=== PATIENT | female | born 1990 | race Caucasian/White ===

== ENCOUNTER 2017-07-26 22:35 | Observation (INO) | payer OTHER ==
--- NOTE | 2017-07-26 23:16 | PCM.LDHP ---
L&D History of Present Illness - General Date of Service: 07/26/17 Admit Problem/Dx: Admission Diagnosis/Problem Admission Diagnosis/Problem 07/26/17 23:12 Contractions Source of Information: Patient History Limitations: Reports: No Limitations - History of Present Illness Introduction:: Patient is a at 39w6d here for contractions. Sophie every 2-5 minutes but they are not intense. They have been occurring since last night. She has been able to eat and walk without difficulty. She is a little nauseous now. Baby is moving well, no vaginal bleeding or loss of fluids. No headaches , vision change, leg swelling, RUQ pain. - Related Data Allergies/Adverse Reactions: Allergies Allergy/AdvReac Type Severity Reaction Status Date / Time No Known Allergies Allergy Verified 07/26/17 22:58 Home Medications: Home Meds Vit No.130/Iron/FA [ Tablet] 1 each PO DAILY 04/20/15 [History] Ferrous Sulfate 325 mg PO DAILY 07/26/17 [History] Past Medical History [employer]EL[employer] History: Reports: : 2 Para: 1 Other OB/BYN History: external version in first . Now 39w6d - Infectious Disease History Infectious Disease History: Reports: Chicken Pox - Past Surgical History HEENT Surgical History: Reports: Oral Surgery, Other (See Below) Other HEENT Surgeries/Procedures: nose job Social & Family History - Family History Family Medical History: Noncontributory - Tobacco Use Smoking Status *Q: Never Smoker Second Hand Smoke Exposure: No - Caffeine Use Caffeine Use: Reports: None - Recreational Drug Use Recreational Drug Use: No H&P Review of Systems - Review of Systems: Review Of Systems: See Below General: Reports: No Symptoms HEENT: Reports: No Symptoms Pulmonary: Reports: No Symptoms Cardiovascular: Reports: No Symptoms Gastrointestinal: Reports: Nausea Genitourinary: Reports: No Symptoms Musculoskeletal: Reports: No Symptoms Skin: Reports: No Symptoms Psychiatric: Reports: No Symptoms Neurological: Reports: No Symptoms Hematologic/Lymphatic: Reports: No Symptoms Immunologic: Reports: No Symptoms L&D Exam - Exam Exam: See Below - OB Specific Contraction Frequency (min): Every 2-4 minutes Contraction Intensity: Mild Movement: Active Heart Tones: Present Heart Tones per Min: 150 (Reactive strip) Heart Rate (FHR) Variability: Moderate (6-25 bmp) Presentation: Vertex - Roman Score Roman Score Effacement: 51-70% Roman Score Dilation: 1-2 cm - Exam General: Alert, Oriented, Cooperative HEENT: Conjunctiva Clear, EOMI, Hearing Intact, Mucosa Moist & [place], Nares Patent, Normal Nasal Septum Neck: Supple, Trachea Midline Lungs: Clear to Auscultation, Normal Respiratory Effort Cardiovascular: Regular Rate, Regular Rhythm GI/Abdominal Exam: Normal Bowel Sounds, Soft, Non-Tender, No Organomegaly, No Distention, No Abnormal Bruit, No Mass Genitourinary: Cervical dilitation (/-2) Extremities: Normal Inspection, Normal Range of Motion, Non-Tender, No Pedal Edema, Normal Capillary Refill Skin: Warm, Dry, Intact Psychiatric: Alert, Normal Affect, Normal Mood - Problem List (1) Normal labor SNOMED Code(s): 50436465 ICD Code: O80 - ENCOUNTER FOR FULL-TERM UNCOMPLICATED DELIVERY; Z37.9 - OUTCOME OF DELIVERY, UNSPECIFIED Status: Acute Current Visit: Yes Problem List Initiated/Reviewed/Updated: Yes Orders Last 24hrs: Active Orders 24 hr Category Date Time Status OB Check [OM.PC] Click To Edit Care 07/26/17 23:00 Ordered Patient admitted with frequent contractions at 40 weeks. Admit to OB, intermittent TOCO and EFM. If not making adequate cervical change, will start pitocin for augmentation. GBS positive, start Pen G. Patient would like intrathecal when the time comes for pain control. Discussed with Dr. Lucia. Leticia Jauregui MD PGYIII
[2017-07-27] MEDS ORDERED: Tranexamic Acid 1,000 MG in Sodium Chloride 0.9% 100 ML IV PRN (00:08)
[2017-07-27] MEDS ORDERED: Misoprostol 400 MCG (4 X 100 MCG TAB) RECTAL PRN (00:08)
[2017-07-27] MEDS ORDERED: Ondansetron 4 MG/2 ML SDV IV PRN (00:08)
[2017-07-27] MEDS ORDERED: Acetaminophen 325 MG Tab PO PRN (00:08)
[2017-07-27] MEDS ORDERED: Sodium Chloride 0.9% 10 ML Syringe FLUSH PRN (00:08)
[2017-07-27] MEDS ORDERED: Carboprost Tromethamine 250 MCG/1 ML Amp IM PRN (00:08)
[2017-07-27] MEDS ORDERED: Methylergonovine 0.2 MG/1 ML Amp IM PRN (00:08)
[2017-07-27] MEDS ORDERED: Lactated Ringers 500 ML IV ONE (00:08)
[2017-07-27] MEDS ORDERED: Lidocaine 1% 30 ML SDV INJECT PRN (00:08)
[2017-07-27] MEDS ORDERED: Penicillin G Potassium 5 MILLUNITS in Sodium Chloride 0.9% 100 ML IV ONE (00:08)
[2017-07-27] MEDS ORDERED: Nalbuphine 10 MG/1 ML Vial IM ONE (00:12)
[2017-07-27] MEDS ORDERED: Oxytocin/Normal Saline 30 UNIT/500 ML BAG IV SCH (00:15)
[2017-07-27] MEDS ORDERED: Calcium Carbonate 500 MG Tab.Chew PO PRN (00:30)
[2017-07-27] MEDS: Lactated Ringers 1,000 ML IV SCH ×3 (00:41→12:05)
[2017-07-27] MEDS ORDERED: Penicillin G Potassium 3 MILLUNITS in Sodium Chloride 0.9% 100 ML IV SCH (02:00)
[2017-07-27] MEDS: Penicillin G Potassium 3 MILLUNITS in Sodium Chloride 0.9% 100 ML IV SCH ×2 (04:39→09:09)
--- NOTE | 2017-07-27 07:45 | PCM.PN ---
- General Info Date of Service: 07/27/17 Admission Dx/Problem (Free Text): Admission Diagnosis/Problem Admission Diagnosis/Problem 07/26/17 23:12 Contractions Subjective Update: Patient relatively comfortable with contractions - Patient Data Vitals - Most Recent: Last Vital Signs Temp 36.8 C 07/27/17 05:45 Pulse 75 07/27/17 05:45 Resp 16 07/27/17 03:45 BP 119/71 07/27/17 05:45 Pulse Ox 100 07/26/17 22:47 Weight - Most Recent: 101.605 kg Lab Results Last 24 Hours: Laboratory Results - last 24 hr 07/27/17 Range/Units 00:24 WBC 9.9 (5.0-10.0) 10^3/uL RBC 4.01 L (4.2-5.4) 10^6/uL Hgb 12.1 (12.0-16.0) g/dL Hct 36.0 L (37.0-47.0) % MCV 89.8 D (80-100) fL MCH 30.2 (27.0-34.0) pg MCHC 33.6 (33.0-35.0) g/dL Plt Count 257 (150-450) 10^3/uL Med Orders - Current: Current Medications Acetaminophen (Tylenol) 650 mg PO Q4H PRN PRN Reason: Pain (Mild 1-3) and fever Calcium Carbonate/Glycine (Tums) 500 mg PO Q2H PRN PRN Reason: Heartburn Last Admin: 07/27/17 00:47 Dose: 500 mg Carboprost Tromethamine (Hemabate Ds) 250 mcg IM ASDIRECTED PRN PRN Reason: HEMORRHAGE Lactated Ringer's (Ringers, Lactated) 1,000 mls @ 125 mls/hr IV ASDIRECTED RAUL Last Admin: 07/27/17 05:44 Dose: 125 mls/hr Oxytocin/Sodium Chloride (Pitocin In Ns 30 Unit/500 Ml) 30 unit in 500 mls @ 2 mls/hr IV TITRATE RAUL; Protocol Last Titration: 07/27/17 02:30 Dose: 6 munits/min, 6 mls/hr Tranexamic Acid 1,000 mg/ (Sodium Chloride) 110 mls @ 660 mls/hr IV ONETIME PRN PRN Reason: Bleeding Penicillin G Potassium 3 (millunits/ Sodium Chloride) 100 mls @ 200 mls/hr IV Q4H RAUL Last Admin: 07/27/17 04:39 Dose: 200 mls/hr Lidocaine HCl (Xylocaine-Mpf 1%) 10 ml INJECT ASDIRECTED PRN PRN Reason: Perineal Repair Methylergonovine Maleate (Methergine) 0.2 mg IM ASDIRECTED PRN PRN Reason: Hemorrhage Misoprostol (Cytotec) 800 mcg RECTAL ASDIRECTED PRN PRN Reason: Hemorrhage Ondansetron HCl (Zofran) 4 mg IV Q4H PRN PRN Reason: Nausea/Vomiting Sodium Chloride (Saline Flush) 10 ml FLUSH ASDIRECTED PRN PRN Reason: Keep Vein Open Discontinued Medications Lactated Ringer's (Ringers, Lactated) 500 mls @ 125 mls/hr IV .BOLUS ONE Stop: 07/27/17 04:07 Penicillin G Potassium 5 (millunits/ Sodium Chloride) 100 mls @ 200 mls/hr IV ONETIME ONE Stop: 07/27/17 00:37 Last Admin: 07/27/17 00:41 Dose: 200 mls/hr Penicillin G Potassium 3 (millunits/ Sodium Chloride) 100 mls @ 200 mls/hr IV Q4HR RAUL Nalbuphine HCl (Nubain) 20 mg IM ONETIME ONE Stop: 07/27/17 00:13 - Exam (Female) Exam: Cervical Dilatation (2.5/70/-2), Heart Tones (140, moderate variability, accelerations present, no decels) Physical Findings Comments:: TOCO: Sophie every 2-3 minutes - Problem List & Annotations (1) Normal labor SNOMED Code(s): 71875805 Code(s): O80 - ENCOUNTER FOR FULL-TERM UNCOMPLICATED DELIVERY; Z37.9 - OUTCOME OF DELIVERY, UNSPECIFIED Status: Acute Current Visit: Yes - Problem List Review Problem List Initiated/Reviewed/Updated: Yes - My Orders Last 24 Hours: My Active Orders 07/26/17 23:00 OB Check [OM.PC] Click To Edit 07/27/17 00:08 Patient Status [ADT] Routine Communication Order [RC] ASDIRECTED Heart Tones [RC] PER UNIT ROUTINE Notify Provider Vital Signs OB [RC] ASDIRECTED Notify Provider [RC] PRN Pump Management, Intrathecal [RC] ASDIRECTED Up ad Alannah [RC] ASDIRECTED Vital Signs [RC] PER UNIT ROUTINE Acetaminophen [Tylenol] 650 mg PO Q4H PRN Carboprost Tromethamine [Hemabate DS] 250 mcg IM ASDIRECTED PRN Lidocaine 1% [Xylocaine-MPF 1%] 10 ml INJECT ASDIRECTED PRN Methylergonovine [Methergine] 0.2 mg IM ASDIRECTED PRN Misoprostol [Cytotec] 800 mcg RECTAL ASDIRECTED PRN Ondansetron [Zofran] 4 mg IV Q4H PRN Sodium Chloride 0.9% [Saline Flush] 10 ml FLUSH ASDIRECTED PRN Tranexamic Acid [Cyklokapron] 1,000 mg Sodium Chloride 0.9% [Normal Saline] 100 ml IV ONETIME Saline Lock Insert [OM.PC] Routine Resuscitation Status Routine 07/27/17 00:15 Lactated Ringers [Ringers, Lactated] 1,000 ml IV ASDIRECTED Oxytocin/Normal Saline [Pitocin in NS 30 UNIT/500 ML] 30 unit in 500 ml IV TITRATE 07/27/17 00:30 Calcium Carbonate [Tums] 500 mg PO Q2H PRN 07/27/17 04:30 Penicillin G Potassium [Pfizerpen] 3 millunits Sodium Chloride 0.9% [Normal Saline] 100 ml IV Q4H 07/27/17 Breakfast Nothing Per Oral Diet [DIET] - Assessment Assessment:: Labor; little progress - Plan Plan:: Patient is on 6 of pitocin and has been for 5 hours. Will give her one more hour of low dose pit and decide on weather to proceed with increasing pitocin or try cytotec. Expectant management for Leticia Jauregui MD PGYIII
--- NOTE | 2017-07-27 13:57 | PCM.DCSUM1 ---
Discharge Summary - Discharge Data Discharge Disposition: Home, Self-Care 01 Condition: Good - Discharge Diagnosis/Problem(s) (1) False labor SNOMED Code(s): 136548423 ICD Code: O47.9 - FALSE LABOR, UNSPECIFIED Status: Acute Current Visit: Yes - Patient Instructions Diet: Regular Diet as Tolerated, Drink 8-10+ Glasses/Day Activity: No Lifting Over 20 Pounds Driving: May Drive Today Showering/Bathing: May Shower - Discharge Plan Home Medications: Home Meds Vit No.130/Iron/FA [ Tablet] 1 each PO DAILY 04/20/15 [History] Ferrous Sulfate 325 mg PO DAILY 07/26/17 [History] - Patient Data Vitals - Most Recent: Last Vital Signs Temp 98.2 F 07/27/17 05:45 Pulse 75 07/27/17 05:45 Resp 16 07/27/17 03:45 BP 119/71 07/27/17 05:45 Pulse Ox 100 07/26/17 22:47 Weight - Most Recent: 224 lb I&O - Last 24 hours: Intake & Output 07/26/17 07/27/17 07/27/17 22:59 06:59 14:59 Intake Total 1381 Balance 1381 Lab Results - Last 24 hrs: Laboratory Results - last 24 hr 07/27/17 Range/Units 00:24 WBC 9.9 (5.0-10.0) 10^3/uL RBC 4.01 L (4.2-5.4) 10^6/uL Hgb 12.1 (12.0-16.0) g/dL Hct 36.0 L (37.0-47.0) % MCV 89.8 D (80-100) fL MCH 30.2 (27.0-34.0) pg MCHC 33.6 (33.0-35.0) g/dL Plt Count 257 (150-450) 10^3/uL Med Orders - Current: Current Medications Acetaminophen (Tylenol) 650 mg PO Q4H PRN PRN Reason: Pain (Mild 1-3) and fever Calcium Carbonate/Glycine (Tums) 500 mg PO Q2H PRN PRN Reason: Heartburn Last Admin: 07/27/17 00:47 Dose: 500 mg Carboprost Tromethamine (Hemabate Ds) 250 mcg IM ASDIRECTED PRN PRN Reason: HEMORRHAGE Lactated Ringer's (Ringers, Lactated) 1,000 mls @ 125 mls/hr IV ASDIRECTED RAUL Last Admin: 07/27/17 12:05 Dose: 125 mls/hr Oxytocin/Sodium Chloride (Pitocin In Ns 30 Unit/500 Ml) 30 unit in 500 mls @ 2 mls/hr IV TITRATE RAUL; Protocol Last Titration: 07/27/17 10:58 Dose: 14 mls/hr Tranexamic Acid 1,000 mg/ (Sodium Chloride) 110 mls @ 660 mls/hr IV ONETIME PRN PRN Reason: Bleeding Penicillin G Potassium 3 (millunits/ Sodium Chloride) 100 mls @ 200 mls/hr IV Q4H RAUL Last Admin: 07/27/17 09:09 Dose: 200 mls/hr Lidocaine HCl (Xylocaine-Mpf 1%) 10 ml INJECT ASDIRECTED PRN PRN Reason: Perineal Repair Methylergonovine Maleate (Methergine) 0.2 mg IM ASDIRECTED PRN PRN Reason: Hemorrhage Misoprostol (Cytotec) 800 mcg RECTAL ASDIRECTED PRN PRN Reason: Hemorrhage Ondansetron HCl (Zofran) 4 mg IV Q4H PRN PRN Reason: Nausea/Vomiting Sodium Chloride (Saline Flush) 10 ml FLUSH ASDIRECTED PRN PRN Reason: Keep Vein Open Discontinued Medications Lactated Ringer's (Ringers, Lactated) 500 mls @ 125 mls/hr IV .BOLUS ONE Stop: 07/27/17 04:07 Penicillin G Potassium 5 (millunits/ Sodium Chloride) 100 mls @ 200 mls/hr IV ONETIME ONE Stop: 07/27/17 00:37 Last Admin: 07/27/17 00:41 Dose: 200 mls/hr Penicillin G Potassium 3 (millunits/ Sodium Chloride) 100 mls @ 200 mls/hr IV Q4HR [facility] Nalbuphine HCl (Nubain) 20 mg IM ONETIME ONE Stop: 07/27/17 00:13
--- NOTE | 2017-07-27 21:54 | DISCH ---
ADMISSION DIAGNOSES: 1. A 39 and 6/7 weeks' gestation by last menstrual period and 20-week ultrasound. 2. 2, para 1. 3. Blood type O positive, rubella immune, and group B streptococcus positive. 4. History of post-dates delivery. DISCHARGE DIAGNOSES: 1. A 39 and 6/7 weeks' gestation by last menstrual period and 20-week ultrasound. 2. 2, para 1. 3. Blood type O positive, rubella immune, and group B streptococcus positive. 4. History of post-dates delivery. 5. False labor. BRIEF HISTORY: A 27-year-old female presented to the hospital with complaints of increasing pelvic pressure and possible contractions. See admission H and P for further details. HOSPITAL COURSE: The patient's labor was augmented with Pitocin at 6 units for 6 hours. Upon cervical exam check after those 6 hours, her cervix was not found to have dilated beyond 2 cm. The patient was 2 cm dilated in clinic visit. The patient's Pitocin was increased over time to a maximum of 14 mL/minute. Cervical exam at noon today found the cervix to be 2.5 cm dilated. Bag of water is intact. Mother has received 4 courses of penicillin for her GBS positive status. Discussed with mother that her time here has helped ripen her cervix for delivery. Discussed the risks and benefits of induction of labor via Pitocin and Cytotec. Mother in agreement with physician that further attempts at induction of labor today would increase risks of shoulder dystocia, distress, and primary section. Mother is in agreement with plan to be discharged home today to expect spontaneous induction of labor. DISCHARGE CONDITION: Good. PHYSICAL EXAMINATION: Vital Signs: Temperature 98.2 Fahrenheit, pulse is 75, blood pressure 119/71, respirations of 16 on room air. Heart: Regular without murmur. Lungs: Clear to auscultation bilaterally. Abdomen: Gravid. Fundus is firm. Extremities: No edema, erythema, or tenderness. Cervix: Cervical exam 2.5 cm dilated with softened cervix. Tocometer strips is reassuring, category 1 tracing. LABORATORY DATA: Hemoglobin of 12.1, platelets 257. DISPOSITION: Home with family. MEDICATIONS: Continue home medications she was taking throughout prior to this admission. DISCHARGE INSTRUCTIONS: She is discharged home. She is to continue her activities as she was prior to her admission. Discussed induction of labor in 5 -[address] Lucia. Patient's and her 's questions were answered. [facility] /[id number] MTDD
[2017-07-28 18:11] VITALS: BP 91/49
== END 2017-07-27 13:15 | disposition home or self-care (01) ==
LOC: DL.OBCHECK 22:35 → DL.OB 07-27 00:03
PROVIDERS: ADMIT Family Medicine; ATTEND Family Medicine
DX: O60.03 Preterm labor without delivery, third trimester (principal); O98.813 Other maternal infectious and parasitic diseases complicating pregnancy, third trimester; B95.1 Streptococcus, group B, as the cause of diseases classified elsewhere; Z3A.39 39 weeks gestation of pregnancy
CPT/HCPCS: 36415; 85027; A9270; J2540; J2590; J7050; J7120

== ENCOUNTER 2017-08-01 00:03 | Inpatient (IN) | payer OTHER ==
[2017-08-01] MEDS ORDERED: Misoprostol 25 MCG (1/4 of 100 MCG) Tab ONE ×2 (05:28→09:24)
--- NOTE | 2017-08-01 07:46 | HP ---
REASON FOR ADMISSION: Induction of labor for current postdates gestation and history of post-dates gestation. HISTORY OF PRESENT ILLNESS: A 27-year-old, 2, para 1-0-0-1, who presented to Labor and Delivery at 40 weeks 5 days gestation for induction of labor due to her history of postdates delivery. The patient was seen earlier in Labor and Delivery on the night of July 26, 2017, was 2 cm dilated, admitted for induction and augmentation of labor with Pitocin and received 12 hours of Pitocin augmentation and was discharged July 27, 2017 at 2 cm dilated. Please see notes from those dates for further details. Patient started her care at 13 weeks gestation and has been very compliant with her visits with Dr. Catrina Augustine. Dating is based on definite last menstrual period, which is consistent with a 21-week ultrasound. Blood type O positive. Antibody screen negative. Hemoglobin 13.4. Rubella immune. RPR nonreactive. Hepatitis B surface antigen nonreactive. Hepatitis C nonreactive. HIV negative. TSH in normal limits. Group B strep positive. Bacterial vaginosis at 31 weeks, treated with metronidazole. OBSTETRICAL HISTORY: One prior vaginal delivery at 40 weeks 5 days. Vacuum assisted vaginal delivery of a 3895 g, male infant. This had a successful external version prior to delivery. MEDICAL HISTORY: None with exception of prior SURGICAL HISTORY: Rhinoplasty and wisdom teeth extraction under general anesthesia. MEDICATIONS: vitamins with iron and Tums for heartburn. ALLERGIES: No known allergies. FAMILY HISTORY: Mother with melanoma, and father with type 2 diabetes mellitus, multiple sclerosis and seizures, undetermined if related to multiple sclerosis. Paternal grandfather with coronary artery disease. Maternal uncles, twins. Paternal uncle with esophageal cancer. Family history is negative for defects, anesthesia problems, bleeding disorders, clotting disorder, and cystic fibrosis. SOCIAL HISTORY: The patient is to , Jesse. They live in [place], [place]. 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 This is their second child together. REVIEW OF SYSTEMS: Up to date for immunizations including flu shot and Tdap during this . The patient plans on breast feeding. The patient has a personal history of chickenpox. System review is unremarkable. No visual changes. No headaches, nausea, vomiting. No significant edema. No spotting or bleeding. No right upper quadrant pain. No fluid discharge or rupture of membranes. Irregular contractions described as slightly worse than the menstrual cramp. PHYSICAL EXAMINATION: Vital Signs: Blood pressure 117/82, pulse of 76, temperature of 97.6, respirations 16 on room air. General: The patient is well and is no acute distress. Height stated 5 feet 5 inches, weight 224 pounds. HEENT: Normocephalic and atraumatic. Mucosal membranes are moist. Lungs: Clear to auscultation bilaterally. Heart: S1 and S2. Regular rate and rhythm. No murmur. Abdomen: Gravid. Cervix is 2 cm dilated, 50% effaced. Bag of water intact. No vaginal fluid, leakage, or bleeding noted after cervical exam. LABORATORY DATA: White cell count of 10.4, hemoglobin of 12.3, and platelets 254. Nonstress test on arrival shows baseline of 140. Good variability noted. Accelerations are noted. Strip is reactive. Intermittent contractions from 3 to 5 minutes apart. IMPRESSION: 1. A 27-year-old, 2, para 1-0-0-1 at 40 weeks 5 days gestation, candidate for induction due to history of postdates gestation requiring induction of labor. 2. Blood type is O positive. Rubella immune. group B streptococcus positive. 3. Anemia of . 4. Nonstress test, reactive. Plan: The patient will be admitted with routine induction orders. Cytotec will be placed 25 mcg per vagina as per induction orders. We will continue to observe closely and will consider to repeat Cytotec at approximately 4:45 a.m., 4 hours post placement for Cytotec. Artificial rupture of membranes or Pitocin infusion, we will use for augmentation as pending her clinical course in labor. The patient is planning on intrathecal for pain management, anticipating likely vaginal delivery for her. The patient and are aware that a course of labor may change to involve intervention such as a vacuum-assisted delivery and possibly section for delivery. All questions answered. Further management pending her course of labor. [facility] /[id number] Patient seen and examined. Agree with note as scribed my behalf by Milana Matos MS3. -[facility] 08/09/17 2227. MTDD
[2017-08-01] MEDS ORDERED: Misoprostol 25 MCG (1/4 of 100 MCG) Tab VAG PRN (11:03)
[2017-08-01] MEDS ORDERED: Methylergonovine 0.2 MG/1 ML Amp IM PRN (11:10)
[2017-08-01] MEDS ORDERED: Lidocaine 1% 30 ML SDV INJECT PRN (11:10)
[2017-08-01] MEDS ORDERED: Carboprost Tromethamine 250 MCG/1 ML Amp IM PRN ×2 (11:11→22:52)
[2017-08-01] MEDS ORDERED: Misoprostol 400 MCG (4 X 100 MCG TAB) RECTAL PRN ×2 (11:11→22:52)
[2017-08-01] MEDS ORDERED: Nalbuphine 10 MG/1 ML Vial IM PRN (11:12)
[2017-08-01] MEDS ORDERED: Penicillin G Potassium 5 MILLUNITS in Sodium Chloride 0.9% 100 ML IV ONE (13:08)
--- NOTE | 2017-08-01 13:31 | PCM.PNLD ---
<Milana Matos - Last Filed: 08/01/17 13:25> Labor Progress Note - VS & Meds Vital Signs: Last Vital Signs Temp 97.7 F 08/01/17 11:44 Pulse 78 08/01/17 11:44 Resp 16 08/01/17 11:44 BP 110/56 L 08/01/17 11:44 Pulse Ox Active Medications: Current Medications Carboprost Tromethamine (Hemabate Ds) 250 mcg IM ASDIRECTED PRN PRN Reason: Bleeding Lactated Ringer's (Ringers, Lactated) 1,000 mls @ 20 mls/hr IV .Q24H RAUL Penicillin G Potassium 2.5 (millunits/ Sodium Chloride) 100 mls @ 200 mls/hr IV Q4H RAUL Penicillin G Potassium 5 (millunits/ Sodium Chloride) 100 mls @ 200 mls/hr IV ONETIME ONE Stop: 08/01/17 13:37 Lidocaine HCl (Xylocaine-Mpf 1%) 0 ml INJECT ASDIRECTED PRN PRN Reason: LOCAL ANESTHESIA Methylergonovine Maleate (Methergine) 0.2 mg IM ASDIRECTED PRN PRN Reason: Bleeding Misoprostol (Cytotec) 25 mcg VAG Q4H PRN PRN Reason: DIRECTED BY PHYSICIAN Last Admin: 08/01/17 13:21 Dose: 25 mcg Misoprostol (Cytotec) 800 mcg RECTAL ASDIRECTED PRN PRN Reason: Bleeding Nalbuphine HCl (Nubain) 20 mg IM ONETIME PRN PRN Reason: PAIN Discontinued Medications Misoprostol (Cytotec) Confirm Administered Dose 25 mcg .ROUTE .STK-MED ONE Stop: 08/01/17 05:29 Last Admin: 08/01/17 06:22 Dose: Not Given Misoprostol (Cytotec) Confirm Administered Dose 25 mcg .ROUTE .STK-MED ONE Stop: 08/01/17 09:25 Last Admin: 08/01/17 09:28 Dose: 25 mcg - Uterine Contractions Uterine Monitoring Mode: External [place] Contraction Frequency (min): 1.5-5.5 Contraction Duration (sec): 60-90 Contraction Intensity: Mild to Moderate Uterine Resting Tone: Soft - Vaginal Exam Dilation (cm): 3.5 Effacement (Percent): 50 Cervical Position: Posterior Sterile Vaginal Exam Performed By: Milana Matos - Labor Progress (Free Text) Labor Progress: Cytotec Induction - 25 mcg every 4 hours placed vaginally 00:45 2 cm dilated, 50% effaced 05:00 2 cm dilated, 50% effaced 09:30 3 cm dilated, 50% effaced, contractions stronger 13:20 3.5 - 4 cm dilated, 50% effaced GRADER OPERATOR MS3 <Khari AugustineCatrina Feliz - Last Filed: 08/09/17 22:27> Labor Progress Note - VS & Meds Vital Signs: Last Vital Signs Temp 96.9 F 08/03/17 07:09 Pulse 73 08/03/17 07:09 Resp 16 08/03/17 07:09 BP 117/74 08/03/17 07:09 Pulse Ox 97 08/03/17 07:09 Active Medications: Current Medications Discontinued Medications Acetaminophen (Tylenol) 650 mg PO Q6H PRN PRN Reason: mild pain or fever Last Admin: 08/02/17 09:16 Dose: 650 mg Acetaminophen (Tylenol) 650 mg PO Q4H PRN PRN Reason: Cramping Last Admin: 08/02/17 14:29 Dose: 650 mg Benzocaine/Menthol (Dermoplast Pain Relief Girard) 0 gm TOP Q4H PRN PRN Reason: Perineal comfort measures Last Admin: 08/01/17 23:16 Dose: 1 spray Bupivacaine HCl/Dextrose (Marcaine 0.75% Spinal) Confirm Administered Dose 2 ml .ROUTE .STK-MED ONE Stop: 08/01/17 19:14 Last Admin: 08/01/17 20:31 Dose: Not Given Bupivacaine HCl/Dextrose (Marcaine 0.75% Spinal) 0.8 ml .XX .STK-MED ONE Stop: 08/02/17 14:48 Carboprost Tromethamine (Hemabate Ds) 250 mcg IM ASDIRECTED PRN PRN Reason: Bleeding Carboprost Tromethamine (Hemabate Ds) 250 mcg IM ASDIRECTED PRN PRN Reason: Excessive vaginal bleeding Docusate Sodium (Colace) 100 mg PO BID PRN PRN Reason: Constipation Last Admin: 08/03/17 08:42 Dose: 100 mg Epinephrine HCl (Adrenalin) Confirm Administered Dose 1 mg .ROUTE .STK-MED ONE Stop: 08/01/17 19:14 Last Admin: 08/01/17 20:31 Dose: Not Given Epinephrine HCl (Adrenalin) 0.1 mg .XX .STK-MED ONE Stop: 08/02/17 14:48 Fentanyl (Sublimaze) Confirm Administered Dose 100 mcg .ROUTE .STK-MED ONE Stop: 08/01/17 19:14 Last Admin: 08/01/17 20:31 Dose: Not Given Fentanyl (Sublimaze) 30 mcg ITHECAL .STK-MED ONE Stop: 08/02/17 14:48 Lactated Ringer's (Ringers, Lactated) 1,000 mls @ 20 mls/hr IV .Q24H RAUL Last Admin: 08/02/17 13:09 Dose: Not Given Penicillin G Potassium 2.5 (millunits/ Sodium Chloride) 100 mls @ 200 mls/hr IV Q4H RAUL Last Admin: 08/02/17 15:06 Dose: Not Given Penicillin G Potassium 5 (millunits/ Sodium Chloride) 100 mls @ 200 mls/hr IV ONETIME ONE Stop: 08/01/17 13:37 Last Admin: 08/01/17 14:22 Dose: 200 mls/hr Lactated Ringer's (Ringers, Lactated) 1,000 mls @ 125 mls/hr IV ASDIRECTED RAUL Last Admin: 08/01/17 19:29 Dose: 125 mls/hr Oxytocin/Sodium Chloride (Pitocin In Ns 30 Unit/500 Ml) 30 unit in 500 mls @ 2 mls/hr IV TITRATE RAUL; Protocol Last Titration: 08/02/17 01:20 Dose: Infused Tranexamic Acid 1,000 mg/ (Sodium Chloride) 110 mls @ 660 mls/hr IV ONETIME PRN PRN Reason: Bleeding Ibuprofen (Motrin) 800 mg PO Q8H PRN PRN Reason: Mild Pain or Fever Last Admin: 08/03/17 08:42 Dose: 800 mg Lidocaine HCl (Xylocaine-Mpf 1%) 0 ml INJECT ASDIRECTED PRN PRN Reason: LOCAL ANESTHESIA Lidocaine HCl (Xylocaine-Mpf 1%) 3 ml .XX .STK-MED ONE Stop: 08/02/17 14:48 Methylergonovine Maleate (Methergine) 0.2 mg IM ASDIRECTED PRN PRN Reason: Bleeding Misoprostol (Cytotec) Confirm Administered Dose 25 mcg .ROUTE .STK-MED ONE Stop: 08/01/17 05:29 Last Admin: 08/01/17 06:22 Dose: Not Given Misoprostol (Cytotec) Confirm Administered Dose 25 mcg .ROUTE .STK-MED ONE Stop: 08/01/17 09:25 Last Admin: 08/01/17 09:28 Dose: 25 mcg Misoprostol (Cytotec) 25 mcg VAG Q4H PRN PRN Reason: DIRECTED BY PHYSICIAN Last Admin: 08/01/17 13:21 Dose: 25 mcg Misoprostol (Cytotec) 800 mcg RECTAL ASDIRECTED PRN PRN Reason: Bleeding Misoprostol (Cytotec) 800 mcg RECTAL ONETIME PRN PRN Reason: Hemorrhage Misoprostol (Cytotec) 25 mcg VAG .STK-MED ONE Stop: 08/03/17 11:20 Nalbuphine HCl (Nubain) 20 mg IM ONETIME PRN PRN Reason: PAIN Last Admin: 08/01/17 17:19 Dose: 20 mg Ondansetron HCl (Zofran) 4 mg IV Q6HR [facility] Last Admin: 08/01/17 20:32 Dose: Not Given Ondansetron HCl (Zofran) 4 mg IV Q4H PRN PRN Reason: Nausea/Vomiting Last Admin: 08/01/17 19:13 Dose: 4 mg Oxytocin (Pitocin) 10 unit IM ONETIME PRN PRN Reason: Bleeding Prenat Multivit/Carbon/Iron/Folic Ac ( Plus Iron) 1 each PO DAILY [facility] Last Admin: 08/03/17 08:42 Dose: 1 each Simethicone (Simethicone) 80 mg PO Q4H PRN PRN Reason: Gas Sodium Bicarbonate (Sodium Bicarbonate 4.2%) Confirm Administered Dose 5 meq .ROUTE .STK-MED ONE Stop: 08/01/17 19:15 Last Admin: 08/01/17 20:31 Dose: Not Given Sodium Bicarbonate (Sodium Bicarbonate 4.2%) 0.5 meq .XX .STK-MED ONE Stop: 08/02/17 14:48 Sodium Chloride (Saline Flush) 10 ml FLUSH ASDIRECTED PRN PRN Reason: Keep Vein Open Sodium Chloride (Normal Saline) 0.4 ml .XX .STK-MED ONE Stop: 08/02/17 14:48 Sufentanil Citrate (Sufenta) Confirm Administered Dose 50 mcg .ROUTE .STK-MED ONE Stop: 08/01/17 19:15 Last Admin: 08/01/17 20:31 Dose: Not Given Sufentanil Citrate (Sufenta) 20 mcg ITHECAL .STK-MED ONE Stop: 08/02/17 14:48 Zolpidem Tartrate (Ambien) 5 mg PO BEDTIME PRN PRN Reason: Insomnia - Labor Progress (Free Text) Labor Progress: Patient seen and examined. Agree with note as scribed my behalf by Milana Matos, MS3. -[facility] 08/09/17 [id number].
[2017-08-01] MEDS: Penicillin G Potassium 2.5 MILLUNITS in Sodium Chloride 0.9% 100 ML IV SCH (18:15)
[2017-08-01] MEDS: Lactated Ringers 1,000 ML IV SCH (18:18)
[2017-08-01] MEDS ORDERED: Ondansetron 4 MG/2 ML SDV IV SCH (19:06)
[2017-08-01] MEDS ORDERED: fentaNYL 100 MCG/2 ML SDV ONE (19:13)
[2017-08-01] MEDS ORDERED: EPINEPHrine 1 MG/ML SDV ONE (19:13)
[2017-08-01] MEDS ORDERED: Bupivacaine 0.75%/D5W 2 ML Amp ONE (19:13)
[2017-08-01] MEDS ORDERED: Ondansetron 4 MG/2 ML SDV IV PRN (19:30)
[2017-08-01] MEDS ORDERED: Lactated Ringers 1,000 ML IV SCH (19:45)
--- NOTE | 2017-08-01 19:46 | PCM.SN ---
- Free Text/Narrative Note: Intrathecal. Sitting position, sterile prep and drape. 1% lidocaine w bicarb for skinwheal to L2 L3 interspace. Introducer, 24 ga pencan x 1. Pos CSF, neg heme, neg parasthesia. 20 mcg PF sufenta, 30 mcg pf fentanyl, 0.1 ml pf 1:1000 epi, 0.4 ml pf NS and 6 mg of 0.75% pf bupivacaine injected after CSF aspiration. Pt to L lateral position. Procedure time 1919 to 1949
[2017-08-01] MEDS ORDERED: Oxytocin/Normal Saline 30 UNIT/500 ML BAG IV SCH (21:15)
[2017-08-01] MEDS ORDERED: Oxytocin 10 Units/1 ML SDV IM PRN (22:52)
[2017-08-01] MEDS ORDERED: Sodium Chloride 0.9% 10 ML Syringe FLUSH PRN (22:52)
[2017-08-01] MEDS ORDERED: Simethicone 80 MG Tab.Chew PO PRN (22:52)
[2017-08-01] MEDS ORDERED: Zolpidem 5 MG Tab PO PRN (22:52)
[2017-08-01] MEDS ORDERED: Benzocaine/Menthol 20%-0.5% Spray 56 GM Canister TOP PRN (22:52)
[2017-08-01] MEDS ORDERED: Acetaminophen 325 MG Tab PO PRN (22:52)
[2017-08-01] MEDS ORDERED: Tranexamic Acid 1,000 MG in Sodium Chloride 0.9% 100 ML IV PRN (22:52)
[2017-08-01] MEDS: Docusate Sodium 100 MG Cap PO PRN (23:15)
[2017-08-01] MEDS: Ibuprofen 800 MG Tab PO PRN (23:16)
--- NOTE | 2017-08-02 00:05 | DEL ---
DATE: 08/01/2017 PREOPERATIVE DIAGNOSES: 1. Intrauterine at 40 and 5/7 weeks' gestation. 2. Induction of labor due to history of postdates gestation requiring induction of labor. 3. 2, para 1-0-0-1. 4. Blood type O positive, rubella immune, group B Streptococcus positive with penicillin prophylaxis given. 5. Anemia of . 6. Third trimester bacterial vaginosis. 7. Heartburn. 8. Nasal congestion. 9. Spontaneous rupture of membranes with meconium-stained fluid. POSTOPERATIVE DIAGNOSES: 1. Intrauterine at 40 and 5/7 weeks' gestation, delivered via normal spontaneous vaginal delivery. 2. Induction of labor due to history of postdates gestation requiring induction of labor. 3. 2, para 2-0-0-2. 4. Blood type O positive, rubella immune, group B Streptococcus positive with penicillin prophylaxis given. 5. Anemia of . 6. Third trimester bacterial vaginosis. 7. Heartburn. 8. Nasal congestion. 9. Spontaneous rupture of membranes with meconium-stained fluid. 10.Nuchal and body umbilical cord entanglement x2, reduced bluntly at delivery. 11.Second-degree perineal laceration, repaired. PROCEDURE PERFORMED: NST, Cytotec induction, scalp electrode placement, Pitocin augmentation, and then subsequent spontaneous vaginal delivery on 08/01/2017. UMBRELLA FRAME MAKER: ROSITA MuñozIII. ANESTHESIA/ANALGESIA: The patient did receive an intrathecal in the first stage of labor. ESTIMATED BLOOD LOSS: 350 mL. FINDINGS: Male, scores of 8 and 9, weighing 9 pounds 4 ounces (4200 g). SUMMARY OF THE EVENTS: The patient is a 27-year-old G2, P1-0-0-1, intrauterine at 40 and 5/7 weeks' gestation, admitted for induction of labor due to history of postdates gestation requiring induction of labor. She underwent multiple Cytotec placements per protocol and was serially re- evaluated. Spontaneous rupture of membranes occurred yielding meconium-stained fluid, and she was noted to have cervical change. She was followed thereafter and a deceleration on the heart tones was traced. At that time, a scalp electrode was placed and Pitocin was started. Subsequently, she was found to be complete. Dr. Lucia and I both donned sterile gown and gloves, and the patient started pushing with contractions, as she was in the second stage of labor. The vertex was then delivered in a AVELINO presentation, followed by the anterior and posterior shoulder, then followed by the rest of the without difficulty. There was nuchal and body umbilical cord entanglement x2 that was reduced bluntly at delivery. Mouth and nares were suctioned. Cord was doubly clamped and cut. The infant was then resuscitated on the mother's abdomen and was subsequently taken over to the warmer. Approximately 10 mL of cord blood was obtained for labs. The placenta was then delivered with gentle cord traction and fundal massage within 15 minutes. The placenta was found to be intact and there was a three-vessel cord. Calcifications were noted on the placenta. Perineum, vaginal, and perirectal areas were examined and noted to have a second-degree perineal laceration that was repaired. The mother and are currently stable at the time of dictation. The history, physical, assessment and plan are per Dr. Lucia. This note is being scribed for Dr. Lucia. [facility] /[id number] Patient seen and examined. Procedure performed under my direct supervision and with my assistance. Agree with note as scribed my behalf by DANIELLA Muñoz. -data officer 08/09/17 JOSE
[2017-08-02] MEDS: Penicillin G Potassium 2.5 MILLUNITS in Sodium Chloride 0.9% 100 ML IV SCH ×5 (01:55→15:06)
[2017-08-02] MEDS: Ibuprofen 800 MG Tab PO PRN ×3 (07:04→22:37)
[2017-08-02] MEDS: Prenatal Multivitamin with Calcium/Folic Acid/Iron Tab PO SCH (08:41)
[2017-08-02] MEDS: Docusate Sodium 100 MG Cap PO PRN ×2 (08:41→22:37)
--- NOTE | 2017-08-02 08:58 | PN ---
DATE: 08/02/2017 SUBJECTIVE: No concerns per nursing staff, and no major concerns per patient. The patient notes that she feels tender and sore, but the pain medications are helping with that. She denies fevers or chills, headaches or blurry vision, lightheadedness or dizziness, shortness of breath or chest pain, nausea or vomiting, sharp abdominal pains, or erythema or tenderness in any extremity. She is tolerating a general diet and is ambulating without difficulty. She has not passed gas and has not had a bowel movement. She does note lochia that is mild in amount. She denies any difficulty with urination. OBJECTIVE: Vital Signs: Temperature 96.0 F, heart rate 70, blood pressure 121/ 76, respiratory rate 20, oxygen saturation 96% on room air. General: Pleasant, alert, and in no acute distress. Heart: Regular rate and rhythm. S1 and S2. Lungs: Clear to auscultation bilaterally with normal respiratory effort. Abdomen: Soft, nondistended, minimally tender in the lower abdomen/pelvic area. The uterus is firm and at the level of the umbilicus. No excessive tenderness by palpation. Neurologic: No obvious neurologic deficits. Extremities: Edema 1+ in the lower extremities bilaterally. No erythema or tenderness in any extremity. Skin: Warm, dry, and well perfused. ASSESSMENT: 1. day #1, status post normal spontaneous vaginal delivery. 2. Intrauterine at 40 and 5/7 weeks' gestation. 3. Induction of labor due to history of postdates gestation requiring induction of labor. 4. G2, P2-0-0-2. 5. Blood type O positive, rubella immune, group B streptococcus positive with penicillin prophylaxis given. 6. Anemia of . 7. Third trimester bacterial vaginosis. 8. Heartburn. 9. Nasal congestion. 10.Spontaneous rupture of membranes with meconium fluid. 11.Nuchal and body umbilical entanglement x2, reduced bluntly at delivery. 12.Second-degree perineal laceration, repaired. PLAN: Continue routine cares. Please see orders for further details. The plans were discussed with the patient. She expressed understanding and is in agreement. All of her questions were answered. We anticipate discharge tomorrow, 08/03/2017. The history, physical, assessment and plan are per Dr. Lucia; and this note is being scribed for Dr. Lucia. [facility] /[id number] Patient seen and examined. Agree with note as scribed my behalf by Yocasta Jane, MS3. -estimator printing plate making 08/09/17 MTDD
[2017-08-02] MEDS: Lactated Ringers 1,000 ML IV SCH (13:09)
[2017-08-02] MEDS ORDERED: Acetaminophen 325 MG Tab PO PRN (14:23)
[2017-08-02] MEDS ORDERED: Sodium Chloride 0.9% 10 ML SDV ONE (14:47)
[2017-08-02] MEDS ORDERED: EPINEPHrine 1 MG/ML SDV ONE (14:47)
[2017-08-02] MEDS ORDERED: Bupivacaine 0.75%/D5W 2 ML Amp ONE (14:47)
[2017-08-02] MEDS ORDERED: fentaNYL 100 MCG/2 ML SDV ITHECAL ONE (14:47)
[2017-08-03 07:09] VITALS: BP 117/74
[2017-08-03] MEDS: Ibuprofen 800 MG Tab PO PRN (08:42)
[2017-08-03] MEDS: Docusate Sodium 100 MG Cap PO PRN (08:42)
[2017-08-03] MEDS: Prenatal Multivitamin with Calcium/Folic Acid/Iron Tab PO SCH (08:42)
--- NOTE | 2017-08-03 11:17 | DISCH ---
ADMISSION DIAGNOSES: 1. Intrauterine at 40 and 5/7 weeks' gestation. 2. Induction of labor due to history of postdate gestation, requiring induction of labor. 3. G2, P1-0-0-1. 4. Blood type O positive. Rubella immune. Group B streptococcus positive with penicillin prophylaxis given. 5. Anemia of . 6. Third trimester bacterial vaginosis, treated. 7. Heartburn. 8. Nasal congestion. DISCHARGE DIAGNOSES: 1. Intrauterine at 40 and 5/7 weeks' gestation, delivered via normal spontaneous vaginal delivery. 2. Induction of labor due to history of postdate gestation, requiring induction of labor. 3. G2, P2-0-0-2. 4. Blood type O positive. Rubella immune. Group B streptococcus positive with penicillin prophylaxis given. 5. Anemia of . 6. Third trimester bacterial vaginosis, treated. 7. Heartburn. 8. Nasal congestion. 9. Spontaneous rupture of membranes with meconium-stained fluid. 10.Nuchal and body umbilical entanglement x2, reduced bluntly at delivery. 11.Second-degree perineal laceration, repaired. 12.History of depression. BRIEF HISTORY: The patient is a 27-year-old, now G2, P2-0-0-2, who was admitted for induction of labor at 40 and 5/7 weeks' gestation due to history of postdate gestation requiring induction of labor. Her induction was actively managed, and she had a successful uncomplicated normal spontaneous vaginal delivery. She did well at the time of delivery. She did have a second- degree perineal laceration that was repaired. Routine care was provided, and the patient did well in the period. HOSPITAL COURSE: Good. Nursing staff and mother have not raised any major concerns. She denies fevers or chills, headaches or blurry vision, lightheadedness or dizziness, shortness of breath or chest pain, nausea or vomiting, sharp abdominal pains, or erythema or tenderness in any extremity. She notes some bilateral lower extremity edema. She is tolerating a general diet and is ambulating without difficulty. She is passing gas but has not had a bowel movement, and denies any difficulty with urination. She has lochia that is mild in amount and continues to improve. DISCHARGE CONDITION: Good. DISCHARGE PHYSICAL EXAMINATION: Vital Signs: Temperature 96.9 Fahrenheit, heart rate 73, blood pressure 117/74, respiratory rate 16, and oxygen saturation 97% on room air. General: Pleasant, alert, and in no acute distress. Heart: Regular rate and rhythm. S1 and S2. Lungs: Clear to auscultation bilaterally with normal respiratory effort. No wheezes, rhonchi, or rales appreciated. Abdomen: Soft, nondistended, nontender to palpation. The uterus is firm and one fingerbreadth above the umbilicus with no tenderness by palpation. Neurologic: No obvious neurologic deficits. Extremities: 1+ edema in the lower extremities bilaterally. No erythema or tenderness in any extremity. Skin: Warm, dry, and well perfused. LABORATORY DATA: White blood cells 8.8, hemoglobin 11.2, platelets 221. DISPOSITION: Home, self-care. FOLLOWUP: The patient was instructed to schedule her 6 week visit at her baby's appointment on 08/08/2017, and sooner as needed. DISCHARGE INSTRUCTIONS: Routine instructions were provided to the patient, includin. Diet as tolerated. 2. Activity: No lifting more than 20 pounds and no strenuous activity. Discussed pelvic rest for the next 6 weeks with immediate return to fertility. 3. Reasons to return or go to the emergency room were discussed in detail, included but not limited to temperature greater than 100.4 Fahrenheit, red hot tender breasts, increased vaginal bleeding, pain, or foul-smelling discharge. DISCHARGE MEDICATIONS: 1. [id number] Tylenol or ibuprofen as needed for pain. 2. Iron sulfate 325 p.o. with breakfast. 3. vitamins. 4. Due to the patient's history of depression after her first delivery and her request, we will start her on Zoloft 50 mg daily and will follow up with this at her son's frist and second visits and at her visit, sooner if needed. The patient expressed understanding and is agreement with the above plan, and all of her questions were answered. The history, physical, assessment and plan are per Dr. Lucia; and this note is being scribed for Dr. Lucia. [facility] /[id number] Patient seen and examined. Agree with note as scribed my behalf by Yocasta Jane MS3. -keno writer/runner 08/09/17 [id number]. [facility]
[2017-08-03] MEDS ORDERED: Misoprostol 25 MCG (1/4 of 100 MCG) Tab VAG ONE (11:19)
== END 2017-08-03 11:20 | disposition home or self-care (01) | DRG 775 ==
LOC: DL.OBCHECK 00:03 → DL.OB 00:04 → OBSVTOIN 22:02 → DL.OB 22:02
PROVIDERS: ADMIT Family Medicine; ATTEND Family Medicine
PROC: 10E0XZZ Delivery of Products of Conception, External Approach (ICD-10-PCS; principal; 2017-08-01)
PROC: 0KQM0ZZ Repair Perineum Muscle, Open Approach (ICD-10-PCS; 2017-08-01)
PROC: 00HU33Z Insertion of Infusion Device into Spinal Canal, Percutaneous Approach (ICD-10-PCS; 2017-08-01)
PROC: 3E0P7GC Introduction of Other Therapeutic Substance into Female Reproductive, Via Natural or Artificial Opening (ICD-10-PCS; 2017-08-01)
DX: O48.0 Post-term pregnancy (principal); Z37.0 Single live birth; Z3A.40 40 weeks gestation of pregnancy; O70.1 Second degree perineal laceration during delivery; O69.1XX0 Labor and delivery complicated by cord around neck, with compression, not applicable or unspecified; O99.824 Streptococcus B carrier state complicating childbirth; O99.013 Anemia complicating pregnancy, third trimester; D64.9 Anemia, unspecified; O77.0 Labor and delivery complicated by meconium in amniotic fluid; O26.893 Other specified pregnancy related conditions, third trimester; R12 Heartburn
CPT/HCPCS: 36415; 51701; 59300; 59409; 85027; A9270-GY; J0171; J2300; J2405; J2540; J2590; J3010; J7050; J7120

== ENCOUNTER 2020-07-20 00:47 | Inpatient (IN) | payer OTHER ==
[~2020-07-20 00:47] MED LIST: Acetaminophen 325 MG Tab PO PRN; Lactated Ringers 500 ML IV SCH; Ondansetron 4 MG/2 ML SDV IVPUSH PRN
[2020-07-20] MEDS ORDERED: Sodium Chloride 0.9% 10 ML Syringe FLUSH PRN (09:00)
[2020-07-20] MEDS ORDERED: Ondansetron 4 MG/2 ML SDV IVPUSH PRN (09:00)
[2020-07-20] MEDS ORDERED: Promethazine 25 MG/ML SDV IM PRN (09:00)
[2020-07-20] MEDS ORDERED: Lactated Ringers 500 ML IV SCH (09:00)
[2020-07-20] MEDS ORDERED: Acetaminophen 325 MG Tab PO PRN (09:00)
[2020-07-20] MEDS ORDERED: Naloxone 2 MG/2 ML Syringe IVPUSH PRN (09:00)
[2020-07-20] MEDS ORDERED: Oxytocin/Normal Saline 30 UNIT/500 ML BAG IV SCH ×2 (09:00)
[2020-07-20] MEDS ORDERED: Lactated Ringers 1,000 ML IV ONE (09:00)
[2020-07-20] MEDS ORDERED: Misoprostol 400 MCG (4 X 100 MCG TAB) RECTAL PRN (09:00)
[2020-07-20] MEDS ORDERED: Carboprost Tromethamine 250 MCG/1 ML Amp IM PRN (09:00)
[2020-07-20] MEDS ORDERED: ePHEDrine 50 MG/ML SDV IVPUSH PRN (09:00)
[2020-07-20] MEDS ORDERED: Lidocaine 1% 30 ML SDV INJECT PRN (09:00)
[2020-07-20] MEDS ORDERED: Tranexamic Acid 1,000 MG in Sodium Chloride 0.9% 100 ML IV PRN (09:00)
[2020-07-20] MEDS ORDERED: Misoprostol 50 MCG (1/2 of 100 MCG) Tab VAG PRN (09:00)
[2020-07-20] MEDS ORDERED: Methylergonovine 0.2 MG/1 ML Amp IM PRN (09:00)
[2020-07-20] MEDS ORDERED: Penicillin G Potassium 5 MILLUNITS in Sodium Chloride 0.9% 100 ML IV ONE (11:00)
[2020-07-20] MEDS: Lactated Ringers 1,000 ML IV SCH ×2 (11:27→23:29)
[2020-07-20] MEDS: Penicillin G Potassium 2.5 MILLUNITS in Sodium Chloride 0.9% 100 ML IV SCH ×3 (15:18→23:25)
[2020-07-20] MEDS ORDERED: Misoprostol 25 MCG (1/4 of 100 MCG) Tab VAG PRN (18:09)
[2020-07-20] MEDS ORDERED: fentaNYL 100 MCG/2 ML SDV ONE (23:13)
[2020-07-20] MEDS ORDERED: EPINEPHrine 1 MG/1 ML Amp ONE (23:13)
[2020-07-20] MEDS ORDERED: ePHEDrine 50 MG/ML SDV ONE (23:54)
--- NOTE | 2020-07-21 00:32 | PCM.PRNOTE ---
- Free Text/Narrative Note: Requested to provide analgesia to full term patient in severe pain. Upon entering the room, patient is sitting on edge of bed complaining of severe abdominal/pelvic pain and discomfort. Procedure was discussed with patient including adverse outcomes and expectations. Pt consented to analgesia, SAB/IT. Pt placed into a proper sitting position. Landmarks for SAB/IT were identified and marked. Hands were washed and appropriate PPE was applied. Back was prepped with betadine x3. A sterile, transparent, fenestrated drape was applied. Excess betadine was removed. Using 3 mL of a 1% lidocaine solution, a skin wheel was placed at the L2/L3 interspace. A 24 ga (4 inch) Pencan spinal needle was inserted until positive for CSF. Negative for heme or paresthesias. Injected fentanyl 30 mcg, sufentanil 25 mcg, and 7.5 mg of a 0.75% bupivacaine solution with an epi wash. Pt was placed left lateral tilt position for approximately 20 minutes. After 30 minutes, pt developed decalerations. BP trended down rapidly to 104/68 from 140s. Ephedrine was given, 5 mg IVP for systolic BP less than 120. Total of Ephedrine 25 mg was given IVP over 30 minutes. BP holding above 120 systolic. Currently 143/78. O2 on via SFM. Fluid bolus was given. Dr. Lucia bedside. Will continue to monitor. Procedure Date & Time: 07/20/20 [id number]
--- NOTE | 2020-07-21 00:53 | PN ---
DATE: 07/20/2020 SUBJECTIVE: The patient is a 30-year-old 4, para 2-0-1-2, currently at 39 and 1/7 weeks gestation based on last menstrual period consistent with 19- week ultrasound, group B strep positive, receiving her penicillin. Blood type O positive and rubella immune. Admitted to the hospital for induction of labor due to a history of macrosomic and history of vacuum-assisted vaginal delivery as well as history of intrauterine demise. The patient has had 2 doses of Cytotec 50 and 25 mcg respectively and is tg about every 2 minutes, but still overall comfortable and anticipating that we will need to do some other labor augmentation at this time. OBJECTIVE: General: Pleasant, well-appearing female. Vital Signs: Last blood pressure 135/80, pulse of 71. She is afebrile. She has had some previously elevated blood pressures and PIH labs are negative, specifically a protein-creatinine ratio of 0.09. Pelvic: Cervix examined, 3 cm dilated, about 75% effaced. Artificial rupture of membranes was performed at 2121 hours and clear fluid returned. Baby remains vertex. heart tones are tracing at 145 beats per minute. Baseline moderate olxm-he-kcop variability. Accelerations have been noted. Berry shows contractions approximately every 2 minutes for a category 1 tracing. ASSESSMENT: Induction of labor at 39 and 1/7 weeks gestation for history of macrosomia and vacuum-assisted delivery, now artificially ruptured with clear fluid. PLAN: Pitocin has been started and we will be using that to further help labor progress and make other interventions as needed should any problems arise and we will be anticipating vaginal delivery. [facility] /[id number]
[2020-07-21] MEDS ORDERED: Benzocaine/Menthol 20%-0.5% Spray 56 GM Canister TOP PRN (01:12)
[2020-07-21] MEDS ORDERED: Misoprostol 400 MCG (4 X 100 MCG TAB) RECTAL PRN (01:12)
[2020-07-21] MEDS ORDERED: Acetaminophen 325 MG Tab PO PRN (01:12)
[2020-07-21] MEDS ORDERED: Tranexamic Acid 1,000 MG in Sodium Chloride 0.9% 100 ML IV PRN (01:12)
[2020-07-21] MEDS ORDERED: Simethicone 80 MG Tab.Chew PO PRN (01:12)
--- NOTE | 2020-07-21 05:14 | DEL ---
DATE: 07/21/2020 PREPROCEDURE DIAGNOSES: 1. A 39-2/7 weeks' intrauterine based on last menstrual period and a 19-week ultrasound. 2. 4, para 2-0-1-2. 3. History of delivery of a macrosomic . 4. History of vacuum-assisted vaginal delivery. 5. Group B streptococcus positive. 6. Blood type O positive. 7. Rubella immune. 8. History of coronavirus disease in January of 2020 affecting this . 9. History of an intrauterine at 16 weeks. 10.Obesity. 11.Depression. 12.Recurrent variable decelerations after intrathecal, responding to amnioinfusion. POSTPROCEDURE DIAGNOSES: 1. A 39-2/7 weeks' intrauterine based on last menstrual period and a 19-week ultrasound. 2. 4, now para 3-0-1-3. 3. History of delivery of a macrosomic infant. 4. History of vacuum-assisted vaginal delivery. 5. Group B streptococcus positive. 6. Blood type O positive. 7. Rubella immune. 8. History of coronavirus disease in January of 2020 affecting this . 9. History of an intrauterine at 16 weeks. 10.Obesity. 11.Depression. 12.Recurrent variable decelerations after intrathecal, responding to amnioinfusion. 13.Status post spontaneous vaginal delivery. 14.Delivery of a viable male infant with a true knot and 2 nuchal cords in the OP position. BRIEF HISTORY: A 30-year-old female with the above-listed diagnoses presented to the hospital for induction of labor, which was carried out with doses of 50 mcg and then 25 mcg of Cytotec. When she was 3+ cm dilated, artificial rupture of membranes was performed, and she went on readily thereafter to progress in labor. She received an intrathecal when she was 5 cm dilated and then developed some difficulties with hypotension, pressures in the 104/60 range, which did come up with some ephedrine; however, the baby had continued recurrent variable decelerations, so IUPC was placed and amnioinfusion started, which did help with those deep variables. She readily progressed on to complete and was able to push very well; grand total for stage I 12 hours, stage II 12 minutes, and stage III 11 minutes. DETAILS: With the patient in the dorsal lithotomy position, she delivered a viable male infant in the OP position over an intact perineum. The baby was noted to have 2 nuchal cords and 1 true knot, which were reduced after delivery of his body because they were quite loose. The baby was dried and stimulated, and mouth and nose were bulb suctioned and the baby placed upon the mother's abdomen. A 3-vessel umbilical cord was doubly clamped and cut after a delay and cord blood sample obtained. The placenta was delivered by gentle cord traction and concomitant uterine massage after 11 minutes. Then, the labia, vagina, and cervix were inspected and intact. There was a very minor perineal abrasion, which did not need repair. The mother tolerated the procedure well. ESTIMATED BLOOD LOSS: 200 mL. COMPLICATIONS: None. FINDINGS: A viable male infant; scores of 8 and 9; weight 3765 g, 8 pounds 5 ounces; length 20-1/2 inches. DISPOSITION: Mother and baby are to stay in the delivery room and initiate . [facility] /[id number]
--- NOTE | 2020-07-21 07:37 | PN ---
DATE: 07/21/2020 SUBJECTIVE: The patient reached 5 cm dilated had her intrathecal placed, at that time, she was doing well, however, went on to develop some recurrent variable decelerations. OBJECTIVE: Blood pressure was 104/60, ephedrine was given blood pressure is now in the 120s/70s. Baby's continued to have some variable decelerations, however, they clinically seem to be somewhat improving, previously down into the 70s, last couple of only been down into the 90s. Pitocin was turned off. Patient turned on her left side and then her right. Bolus of IV fluids and oxygen administered. I checked her and she was a good 7 cm dilated baby in AVELINO position. An intrauterine pressure catheter was placed. She is continuing to contract every 2 to 3 minutes. Overall good strength in quality. When baby's baseline does return up into the 140s, we have good variability. ASSESSMENT: 1. Variable decelerations after intrathecal. 2. Other diagnoses unchanged from last note. PLAN: Attempt Amnio infusion likely need to place a scalp electrode to get better heart rate tracing. Continue to monitor. Discussed possible for section with the patient and her and their questions answered. If we proceed with surgery, details of consent will be outlined in the operative report. [facility] /[id number]
[2020-07-21] MEDS: Ibuprofen 800 MG Tab PO PRN ×2 (10:08→17:38)
[2020-07-21] MEDS: Docusate Sodium 100 MG Cap PO PRN ×2 (10:08→21:17)
[2020-07-21] MEDS: Prenatal Multivitamin with Calcium/Folic Acid/Iron Tab PO SCH (10:08)
[2020-07-22] MEDS: Ibuprofen 800 MG Tab PO PRN ×2 (01:28→09:37)
[2020-07-22 05:21] VITALS: BP 122/80; PULSE 76
[2020-07-22] MEDS: Docusate Sodium 100 MG Cap PO PRN (09:37)
[2020-07-22] MEDS: Prenatal Multivitamin with Calcium/Folic Acid/Iron Tab PO SCH (09:37)
[2020-07-22] MEDS ORDERED: fentaNYL 100 MCG/2 ML SDV ITHECAL ONE (11:44)
[2020-07-22] MEDS ORDERED: ePHEDrine 50 MG/ML SDV IV ONE (11:44)
[2020-07-22] MEDS ORDERED: EPINEPHrine 1 MG/1 ML Amp IV ONE (11:44)
== END 2020-07-22 11:45 | disposition home or self-care (01) | DRG 807 ==
LOC: DL.OB 00:47 → EDSTATUS 09:06 → DL.OB 09:10 → OBSVTOIN 07-21 00:47
PROVIDERS: ADMIT Family Medicine; ATTEND Family Medicine
PROC: 10E0XZZ Delivery of Products of Conception, External Approach (ICD-10-PCS; principal; 2020-07-21)
PROC: 10907ZC Drainage of Amniotic Fluid, Therapeutic from Products of Conception, Via Natural or Artificial Opening (ICD-10-PCS; 2020-07-21)
PROC: 3E0E3GC Introduction of Other Therapeutic Substance into Products of Conception, Percutaneous Approach (ICD-10-PCS; 2020-07-21)
PROC: 3E0P7VZ Introduction of Hormone into Female Reproductive, Via Natural or Artificial Opening (ICD-10-PCS; 2020-07-21)
PROC: 3E0R3BZ Introduction of Anesthetic Agent into Spinal Canal, Percutaneous Approach (ICD-10-PCS; 2020-07-21)
PROC: 00HU33Z Insertion of Infusion Device into Spinal Canal, Percutaneous Approach (ICD-10-PCS; 2020-07-21)
DX: O99.214 Obesity complicating childbirth (principal); Z37.0 Single live birth; E66.9 Obesity, unspecified; O76 Abnormality in fetal heart rate and rhythm complicating labor and delivery; O99.344 Other mental disorders complicating childbirth; F32.9 Major depressive disorder, single episode, unspecified; O69.81X0 Labor and delivery complicated by cord around neck, without compression, not applicable or unspecified; Z20.822 Contact with and (suspected) exposure to COVID-19; Z3A.39 39 weeks gestation of pregnancy; Z86.16 Personal history of COVID-19
CPT/HCPCS: 01967; 36415; 51701; 59409; 81003; 82565; 82570; 83615; 84156; 84450; 84460; 84520; 84550; 85027; A9270-GY; J0171; J2540; J2590; J3010; J7120; U0002